=== PATIENT | female | born 1960 | race Caucasian/White ===

== ENCOUNTER 2017-03-23 18:29 | Emergency (ER) | payer OTHER ==
[~2017-03-23] VITALS: Ht 165.1 cm; Wt 54.4 kg
[2017-03-23 19:13] VITALS: BP 161/92
[2017-03-23] MEDS ORDERED: PROBIOTIC1 EAC1 PO (19:16)
[2017-03-23] MEDS ORDERED: NORCO 5-325 TA1 EACH PO (19:42)
== END 2017-03-23 20:03 | disposition home or self-care (01) ==
LOC: ER 18:29
DX: S50.01XA Contusion of right elbow, initial encounter (principal); V83.9XXA Unspecified occupant of special industrial vehicle injured in nontraffic accident, initial encounter; Y93.89 Activity, other specified; Y92.89 Other specified places as the place of occurrence of the external cause; Y99.8 Other external cause status

== ENCOUNTER 2017-11-30 17:10 | Emergency (ER) | payer OTHER ==
[~2017-11-30] VITALS: Ht 154.9 cm; Wt 55.3 kg
[~2017-11-30 17:10] MED LIST: NORCO 5-325 TA1 EACH PO; PROBIOTIC1 EAC1 PO
[2017-11-30] MEDS ORDERED: [UNRECOGNIZED DRUG - OTHER] (17:31)
[2017-11-30] MEDS ORDERED: HYDROCODONE-AP1 EAC6 PO (19:38)
[2017-11-30] MEDS ORDERED: PREDNISONE 20 M20 MG PO (19:46)
== END 2017-11-30 20:18 | disposition home or self-care (01) ==
LOC: ER 17:10
DX: M51.26 Other intervertebral disc displacement, lumbar region (principal); M25.552 Pain in left hip; W18.39XA Other fall on same level, initial encounter; Y93.89 Activity, other specified; Y92.89 Other specified places as the place of occurrence of the external cause; Y99.8 Other external cause status